=== PATIENT | female | born 1965 | race Caucasian/White ===

== ENCOUNTER 2017-01-15 19:14 | Emergency (ER) | payer OTHER ==
[2017-01-15 20:31] VITALS: BP 148/96
--- NOTE | 2017-01-15 20:43 | UC ---
Respiratory Complaint HPI - History of Current Complaint Chief Complaint: UCGeneralIllness Stated Complaint: CONGESTION,COUGH Time Seen by Provider: 01/15/17 20:37 Hx Obtained From: Patient Hx Last Menstrual Period: 01/19/14 ?: No Onset/Duration: Sudden Onset, Lasting Weeks - 1, Worse Since - today with coughing. Severity Initially: Mild Severity Currently: Moderate Character: Cough: Nonproductive Aggravating Factors: Deep Breaths, Recumbent Position Alleviating Factors: OTC Meds Associated Signs And Symptoms: Positive: Chills, Nasal Congestion, Hoarseness. Negative: Dyspnea Related History: Seasonal Allergies - Risk Factors Pulmonary Embolism Risk Factors: Smoking Cardiac Risk Factors: Smoking Pseudomonas Risk Factors: Chronic Lung Disease Tuberculosis Risk Factors: Smoking - Allergies/Home Medications Allergies/Adverse Reactions: Allergies Allergy/AdvReac Type Severity Reaction Status Date / Time Sulfa Drugs Allergy Intermediate Rash Verified 01/15/17 20:31 Latex Allergy Mild Hives Verified 01/15/17 20:31 Home Medications: Home Medications Ttaxwarejneqd-Zukqndyljl-Celkh [Jeannette-Temple Plus Day/Nig] 1 marlyn PO Q4H PRN [History Confirmed 01/15/17] PMH/Surg Hx/FS Hx/Imm Hx Endocrine History Of: Denies: Diabetes, Thyroid Disease Cardiovascular History Of: Denies: Cardiac Disorders, Hypertension Respiratory History Of: Reports: COPD Denies: Asthma GI/ History Of: Denies: Ulcer - Surgical History Surgical History: Yes Surgery Procedure, Year, and Place: x2. Tonsillectomy. MULTIPLE Ear SX - Family History Known Family History: Negative: Hypertension, Diabetes - Social History Occupation: Employed Full-time Lives: Alone - with BF Alcohol Use: Weekly Substance Use Type: None Smoking Status (MU): Current Some Day Smoker Type: Cigarettes Amount Used/How Often: 5 CIGS PER DAY--PT USING PATCH Length of Time of Smoking/Using Tobacco: 35 YRS Have You Smoked in the Last Year: Yes Household Exposure Type: Cigarettes Cessation Counseling: Patient Advised to Stop - Immunization History Most Recent Tetanus Shot: not sure, "at least ten yrs" Review of Systems Constitutional: Chills ENT: Sore Throat, Ear Ache Respiratory: Cough Neurological: Headache All Other Systems Reviewed And Are Negative: Yes Physical Exam Triage Information Reviewed: Yes Appearance: No Pain Distress, Well-Nourished, Ill-Appearing Vital Signs: Initial Vital Signs Temp 99.3 F 01/15/17 20:23 Pulse 104 01/15/17 20:23 Resp 14 01/15/17 20:23 BP 148/96 01/15/17 20:23 Pulse Ox 100 01/15/17 20:23 Vital Signs Reviewed: Yes Eyes: Positive: Conjunctiva Inflamed ENT: Positive: Nasal congestion, TMs normal Neck exam: Normal Respiratory: Positive: Wheezing - Expiratory with coughing. Cardiovascular Exam: Normal Musculoskeletal Exam: Normal Neurological Exam: Normal Psychological Exam: Normal Skin Exam: Normal UC Diagnostic Evaluation - Laboratory O2 Sat by Pulse Oximetry: 100 Respiratory Course/Dx - Differential Dx/Diagnosis Differential Diagnosis/HQI/PQRI: Exacerbation Of COPD, Lower Resp Infection, Sinusitis Provider Diagnoses: Acute URI. Acute sinusitis. COPD exacerbation Discharge - Discharge Plan Condition: Stable Disposition: HOME Prescriptions: DOXYcycline CAP(*) [DOXYcycline 100MG CAP(*)] 100 mg PO BID #20 cap predniSONE TAB* [Deltasone TAB*] 20 mg PO DAILY #18 tab Patient Education Materials: Upper Respiratory Infection (ED), Sinusitis (ED), Bronchospasm (ED), Prednisone (By mouth), Doxycycline (By mouth) Additional Instructions: [employer] SINUS RINSE: CHECK OUT AT [facility] Saline nasal wash helps with mucous, allergies and congestion. It can be used up to twice a day or only as needed. Use lukewarm tap water. It does not have to be sterilized or distilled water. Do 1/3 on each side and snort out of both nostrils. Repeat the process with 1/6 of the bottle on each side with snorting in between to finish the solution in the bottle NASAL SPRAYS AND DROPS: Afrin in the PUMP/ MIST bottle. Tilt your head down and look at the floor while doing a strong sniff with the spray. Decongestant nasal sprays and drops often give dramatic relief from congestion. They are often recommended for patients with sinus infection to assist with sinus drainage. Persons with high blood pressure should consult the doctor before using these nasal sprays. Afrin and Pepito-Synephrine are common [id number]-juu-[id number] preparations. They should not be used for more than five days, as "rebound" congestion can occur - - the congestion flares as the drug wears off. A way of dealing with this rebound congestion problem is to medicate only one nostril each time, allowing the other nostril to recover from the medicine' s effects. When you no longer need the drug during the day, spray only one nostril each night. This helps you sleep well without severe rebound congestion. Call the doctor if you develop severe headache, palpitations, or chest pain.
[2017-01-15] MEDS ORDERED: DOXYcycline CAP(*) 100 MG PO ONE (20:49)
[2017-01-15] MEDS ORDERED: predniSONE TAB* 20 MG PO ONE (20:49)
== END 2017-01-15 21:14 | disposition home or self-care (01) ==
LOC: UCCORT 19:14
DX: J06.9 Acute upper respiratory infection, unspecified (principal); J01.90 Acute sinusitis, unspecified; J44.1 Chronic obstructive pulmonary disease with (acute) exacerbation; Z88.2 Allergy status to sulfonamides; Z72.0 Tobacco use
CPT/HCPCS: 99212; A9270-GY; G0463; J7512

== ENCOUNTER 2017-05-11 07:55 | Emergency (ER) | payer OTHER ==
[2017-05-11 08:07] VITALS: BP 128/82
--- NOTE | 2017-05-11 08:12 | UC ---
Dental HPI - HPI Summary HPI Summary: 52 yo female with dental abscess noted a couple of days ago no fever no n/v/d denies DM or heart murmur - History of Current Complaint Chief Complaint: UCDentalProblem Stated Complaint: DENTAL Time Seen by Provider: 05/11/17 08:06 Hx Obtained From: Patient Hx Last Menstrual Period: 04/09 Onset/Duration: Gradual Onset, Lasting Days Severity: Mild Pain Intensity: 4 Pain Scale Used: 0-10 Numeric Aggravating: Chewing Alleviating: Nothing Related History: Swelling - Allergies/Home Medications Allergies/Adverse Reactions: Allergies Allergy/AdvReac Type Severity Reaction Status Date / Time Sulfa Drugs Allergy Intermediate Rash Verified 05/11/17 08:07 Latex Allergy Mild Hives Verified 05/11/17 08:07 PMH/Surg Hx/FS Hx/Imm Hx Previously Healthy: Yes - Surgical History Surgical History: Yes Surgery Procedure, Year, and Place: x2. Tonsillectomy. MULTIPLE Ear SX - Family History Known Family History: Negative: Hypertension, Diabetes - Social History Alcohol Use: Weekly Substance Use Type: None Smoking Status (MU): Current Some Day Smoker Type: Cigarettes Amount Used/How Often: 5 CIGS PER DAY--PT USING PATCH Length of Time of Smoking/Using Tobacco: 35 YRS Have You Smoked in the Last Year: Yes Household Exposure Type: Cigarettes - Immunization History Most Recent Tetanus Shot: not sure, "at least ten yrs" Review of Systems Constitutional: Negative Skin: Negative Eyes: Negative ENT: Dental Pain Respiratory: Negative Cardiovascular: Negative Gastrointestinal: Negative Genitourinary: Negative Motor: Negative Neurovascular: Negative Musculoskeletal: Negative Neurological: Negative Psychological: Negative All Other Systems Reviewed And Are Negative: Yes Physical Exam Triage Information Reviewed: Yes Appearance: Well-Appearing, No Pain Distress, Well-Nourished Vital Signs: Initial Vital Signs Temp 98.2 F 05/11/17 08:00 Pulse 71 05/11/17 08:00 Resp 16 05/11/17 08:00 BP 128/82 05/11/17 08:00 Pulse Ox 100 05/11/17 08:00 Vital Signs Reviewed: Yes Eyes: Positive: Conjunctiva Clear ENT: Positive: Hearing grossly normal. Negative: Nasal congestion, Nasal drainage, Trismus, Muffled/hoarse voice Dental: Positive: Abscess @ Neck: Positive: Supple, Nontender, No Lymphadenopathy Respiratory: Positive: Lungs clear, Normal breath sounds, No respiratory distress, No accessory muscle use Cardiovascular: Positive: RRR, No Murmur Musculoskeletal Exam: Normal Neurological Exam: Normal Psychological Exam: Normal Skin Exam: Normal Dental Complaint Course/Dx - Differential Dx/Diagnosis Provider Diagnoses: dental abscess Discharge - Discharge Plan Condition: Stable Disposition: HOME Prescriptions: Penicillin VK 500 MG TAB(NF) [Penicillin VK 500 mg Tab] 500 mg PO QID #28 tab Patient Education Materials: Dental Abscess (ED) Referrals: No Primary Care Phys,NOPCP [Primary Care Provider] - Additional Instructions: follow up with your dentist to ER for worsening symptoms -fever -marked facial swelling -worsening pain recheck if not better in 2 days Images Dental: 1 - abscess
[2017-05-11] MEDS ORDERED: Penicillin VK TAB* 250 MG PO ONE (08:18)
== END 2017-05-11 08:28 | disposition home or self-care (01) ==
LOC: UCCORT 07:55
DX: K04.7 Periapical abscess without sinus (principal); Z88.2 Allergy status to sulfonamides; Z91.040 Latex allergy status; Z72.0 Tobacco use
CPT/HCPCS: 99212; A9270-GY; G0463